=== PATIENT | male | born 1985 | race American Indian/Alaskan Native ===

== ENCOUNTER 2016-04-17 14:28 | Outpatient (CLI) | payer OTHER ==
--- NOTE | 2016-04-17 14:53 | XRay Report ---
LEFT HAND, 2 views: History: Left hand pain. The bony architecture is intact. Bony alignment is normal. The joint spaces appear preserved. There is mild soft tissue swelling of the third digit near the PIP joint. IMPRESSION: Mild soft tissue swelling of the third digit. No acute osseous findings are appreciated.
== END 2016-04-17 14:29 | disposition home or self-care (01) ==
LOC: XRAY 14:28
PROVIDERS: ATTEND Internal Medicine
DX: Z02.71 Encounter for disability determination (principal); M79.642 Pain in left hand

== ENCOUNTER 2019-01-18 00:20 | Emergency (ER) | payer SELFPAY ==
[2019-01-18 01:09] VITALS: BP 117/72
--- NOTE | 2019-01-18 01:47 | XRay Report ---
RIGHT HAND, 3 VIEWS 01/18/2019 INDICATION / CLINICAL INFORMATION: pain and swelling. COMPARISON: None available. FINDINGS: No skeletal abnormality. Signer Name: Vickey Robles MD Signed: 01/18/2019 1:43 AM Workstation Name: [id number]
[2019-01-18] MEDS ORDERED: NORCO 5/325 PO ONE (02:22)
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
== END 2019-01-18 03:41 | disposition home or self-care (01) ==
LOC: ED 00:20
DX: S69.91XA Unspecified injury of right wrist, hand and finger(s), initial encounter (principal); F12.10 Cannabis abuse, uncomplicated; Z86.711 Personal history of pulmonary embolism; Z79.899 Other long term (current) drug therapy; X58.XXXA Exposure to other specified factors, initial encounter; Y93.89 Activity, other specified; Y92.89 Other specified places as the place of occurrence of the external cause; Y99.0 Civilian activity done for income or pay